=== PATIENT | male | born 1995 | race African-American/Black ===

== ENCOUNTER 2016-04-12 02:03 | Emergency (ER) | payer SELFPAY ==
[~2016-04-12] VITALS: Ht 167.6 cm; Wt 80.0 kg
[~2016-04-12 02:03] MED LIST: ALBU8I INH; AMOX875T PO; PRED20 PO
[2016-04-12 02:05] VITALS: BP 136/73; PULSE 92; RESP 20; TEMP 98; O2SAT 96
[2016-04-12] MEDS ORDERED: ONDANSETRON HCL 4 MG/2 ML VIAL IV PUSH ONE (03:00)
[2016-04-12] MEDS ORDERED: MORPHINE SULFATE 4 MG/ML INJ IV PUSH ONE ×2 (03:00→04:45)
--- NOTE | 2016-04-12 03:04 | PD ---
HPI Chief Complaint: Pain: Acute or Chronic Time Seen by Provider: 02:53 Travel History International Travel<30 days: No Contact w/Intl Traveler<30days: No Traveled to known affect area: No History of Present Illness HPI 20-year-old male complains of rectal pain. Patient states that he had anal sex 2 days ago. Patient states he has increasing pain patient states the pain is sharp severe pain localized to her rectal area. Patient denies any pain radiation. On a scale of 1-10 the pain is a 10. PFSH Past Medical History Medical History: Denies Significant Hx Autoimmune Disease: No Blood Disorders: No Cardiovascular Problems: No Genitourinary: No Musculoskeletal: No Neurologic: No Respiratory: No Past Surgical History Surgical History: No Previous Surgery Abdominal Surgery: No Cardiac Surgery: No Ear Surgery: No Endocrine Surgery: No Eye Surgery: No Genitourinary Surgery: No Gynecologic Surgery: No Neurologic Surgery: No Oral Surgery: No Thoracic Surgery: No Social History Alcohol Use: Yes (OCC) Tobacco Use: Yes (1PP3D) Substance Use: No Allergies-Medications (Allergen,Severity, Reaction): Coded Allergies: No Known Allergies (Verified , 04/12/16) Reported Meds & Prescriptions Reported Meds & Active Scripts Active No Active Prescriptions or Reported Medications Review of Systems General / Constitutional: No: Fever Eyes: No: Visual changes HENT: No: Headaches Cardiovascular: No: Chest Pain or Discomfort Respiratory: No: Shortness of Breath Gastrointestinal: No: Abdominal Pain Genitourinary: No: Dysuria Musculoskeletal: No: Pain Skin: No Rash Neurologic: No: Weakness Psychiatric: No: Depression Endocrine: No: Polydipsia Hematologic/Lymphatic: No: Easy Bruising Physical Exam Narrative GENERAL: Well-nourished, well-developed patient. SKIN: Warm and dry. HEAD: Normocephalic. EYES: No scleral icterus. No injection or drainage. NECK: Supple, trachea midline. No JVD or lymphadenopathy. CARDIOVASCULAR: Regular rate and rhythm without murmurs, gallops, or rubs. RESPIRATORY: Breath sounds equal bilaterally. No accessory muscle use. GASTROINTESTINAL: Abdomen soft, non-tender, nondistended. MUSCULOSKELETAL: No cyanosis, or edema. BACK: Nontender without obvious deformity. No CVA tenderness. Examination the rectum shows diffuse moderate to severe tenderness perirectal area. No evidence of laceration bleeding or mass noted. Data Data Last Documented VS Vital Signs Date Time Temp Pulse Resp B/P Pulse Ox O2 Delivery O2 Flow Rate FiO2 04/12/16 02:19 92 20 04/12/16 02:05 98.0 136/73 96 Room Air Orders Complete Blood Count With Diff (04/12/16 02:58) Comprehensive Metabolic Panel (04/12/16 02:58) Prothrombin Time / Inr (Pt) (04/12/16 02:58) Act Partial Throm Time (Ptt) (04/12/16 02:58) Iv Access Insert/Monitor (04/12/16 02:58) Ecg Monitoring (04/12/16 02:58) Oximetry (04/12/16 02:58) Ct Pelvis W Iv Contrast(Rout) (04/12/16 ) Morphine Inj (Morphine Inj) (04/12/16 03:00) Ondansetron Inj (Zofran Inj) (04/12/16 03:00) Iohexol 350 Inj (Omnipaque 350 Inj) (04/12/16 04:13) Morphine Inj (Morphine Inj) (04/12/16 04:45) Labs Laboratory Tests Test 04/12/16 03:08 White Blood Count 17.3 TH/MM3 Red Blood Count 6.21 MIL/MM3 Hemoglobin 16.5 GM/DL Hematocrit 47.2 % Mean Corpuscular Volume 76.0 FL Mean Corpuscular Hemoglobin 26.6 PG Mean Corpuscular Hemoglobin 35.0 % Concent Red Cell Distribution Width 13.5 % Platelet Count 300 TH/MM3 Mean Platelet Volume 7.2 FL Neutrophils (%) (Auto) 57.8 % Lymphocytes (%) (Auto) 28.5 % Monocytes (%) (Auto) 12.8 % Eosinophils (%) (Auto) 0.3 % Basophils (%) (Auto) 0.6 % Neutrophils # (Auto) 10.0 TH/MM3 Lymphocytes # (Auto) 4.9 TH/MM3 Monocytes # (Auto) 2.2 TH/MM3 Eosinophils # (Auto) 0.0 TH/MM3 Basophils # (Auto) 0.1 TH/MM3 CBC Comment AUTO DIFF Prothrombin Time 11.6 SEC Prothromb Time International 1.0 RATIO Ratio Activated Partial 27.8 SEC Thromboplast Time Sodium Level 138 MEQ/L Potassium Level 4.4 MEQ/L Chloride Level 104 MEQ/L Carbon Dioxide Level 22.8 MEQ/L Anion Gap 11 MEQ/L Blood Urea Nitrogen 10 MG/DL Creatinine 1.00 MG/DL Estimat Glomerular Filtration 114 ML/MIN Rate Random Glucose 79 MG/DL Calcium Level 9.9 MG/DL Total Bilirubin 0.7 MG/DL Aspartate Amino Transf 35 U/L (AST/SGOT) Alanine Aminotransferase 47 U/L (ALT/SGPT) Alkaline Phosphatase 101 U/L Total Protein 9.2 GM/DL Albumin 3.9 GM/DL MDM Medical Decision Making Medical Screen Exam Complete: Yes Emergency Medical Condition: Yes Interpretation(s) 4:37 AM. CBC WBC 17.3. 57 neutrophil, 28 lymphs, 12 monos. CMP within normal limit. 5:[address] of the pelvis show perianal abscess. Differential Diagnosis Differential diagnosis including rectal irritation, perirectal abscess. Narrative Course 20-year-old male with perirectal pain after anal sex 2 days ago. Morphine 4 mg IV. Zofran 4 mg IV. Repeat the morphine 4 mg IV. Normal saline solution 1 25 cc an hour. Zosyn 3.375 g IV given. Scripts No Active Prescriptions or Reported Meds Leo Potts MD Apr 12, 2016 03:04
[2016-04-12 03:47] LABS: BASOPHIL # 0.1 TH/MM3 (0-0.2); BASOPHIL % 0.6 % (0.0-2.0); EOSINOPHIL % 0.3 % (0.0-4.0); HEMATOCRIT 47.2 % (39.0-51.0); LYMPH % 28.5 % (9.0-44.0); LYMPHOCYTE # 4.9 TH/MM3 (1.0-4.8); MEAN CORPUSCULAR HEMOGLOBIN 26.6 PG (27.0-34.0); MONO % 12.8 % (0.0-8.0); NEUT % 57.8 % (16.0-70.0); PLATELET COUNT 300 TH/MM3 (150-450); RED BLOOD COUNT 6.21 MIL/MM3 (4.50-5.90); RED CELL DISTRIBUTION WIDTH 13.5 % (11.6-17.2); WHITE BLOOD COUNT 17.3 TH/MM3 (4.0-11.0)
[2016-04-12 03:55] LABS: HEMO FLAGS AUTO DIFF
[2016-04-12 03:57] LABS: ALT (GPT) 47 U/L (12-78); ANION GAP 11 MEQ/L (5-15); AST (GOT) 35 U/L (15-37); BICARBONATE 22.8 MEQ/L (21.0-32.0); BLOOD UREA NITROGEN 10 MG/DL (7-18); CHLORIDE 104 MEQ/L (98-107); GLOMERULAR FILTRATION RATE 114 ML/MIN (>89); POTASSIUM 4.4 MEQ/L (3.5-5.1); SODIUM (NA) 138 MEQ/L (136-145)
[2016-04-12 03:59] LABS: ALKALINE PHOSPHATASE 101 U/L (45-117); TOTAL BILIRUBIN ADULT 0.7 MG/DL (0.2-1.0)
[2016-04-12] MEDS ORDERED: IOHEXOL 350 MG/ML 10 ML VIAL (for RAD DIAG) IV ONE (04:13)
[2016-04-12 04:18] LABS: APTT (PATIENT) 27.8 SEC (24.3-30.1); PROTHROMBIN TIME - PATIENT 11.6 SEC (9.8-11.6)
--- NOTE | 2016-04-12 04:52 | RADRPT ---
EXAM DATE/TIME: 04/12/2016 04:10 [facility] COMPARISON: No previous studies available for comparison. INDICATIONS : Rectal pain x3 days; rule out abscess. IV CONTRAST: 95 cc Omnipaque 350 (iohexol) IV ORAL CONTRAST: No oral contrast ingested. RADIATION DOSE: 14.02 CTDIvol (mGy) MEDICAL HISTORY : None SURGICAL HISTORY : None. ENCOUNTER: Initial ACUITY: 3 days PAIN SCALE: 4/10 LOCATION: Left buttock TECHNIQUE: Volumetric scanning of the pelvis was performed. Using automated exposure control and adjustment of t he mA and/or kV according to patient size, radiation dose was kept as low as reasonably achievable to obtain optimal diagnostic quality images. FINDINGS: BOWEL/MESENTERY: Within the subcutaneous fat within the gluteal crease in perianal region, is a rim-enhancing fluid co llection with adjacent subcutaneous fat stranding. This measures approximately 5-0.5 cm in AP and tra nsverse dimension. This is noted on the right and is characteristic of a perianal abscess. BLADDER: There is no wall thickening or mass. RETROPERITONEUM: There is no aneurysm or lymphadenopathy. REPRODUCTIVE: Within normal limits. INGUINAL: There is no lymphadenopathy or hernia. MUSCULOSKELETAL: Within normal limits for patient age. CONCLUSION: 1. Perianal abscess is seen as described above. Delgado Benton MD on April 12, 2016 at 4:48 Board Certified Radiologist. This report was verified electronically.
[2016-04-12] MEDS ORDERED: PIPERACIL-TAZO 3.375 GM PREMIX 50 ML IV ONE (05:15)
[2016-04-12 05:27] LABS: SCAN/DIFF AUTO DIFF CONFIRMED
[2016-04-12 05:42] VITALS: BP 148/77; PULSE 73; RESP 16; RESP 18; O2SAT 98
[2016-04-12] MEDS ORDERED: LIDOCAINE 1%/EPINEPHrine 1:100,000 SOLN 20 ML VIAL INFIL ONE (05:45)
[2016-04-12] MEDS ORDERED: MIDAZOLAM HCL 5 MG/ML VIAL (1 ML) IVP ONE (05:45)
[2016-04-12 06:57] VITALS: BP 162/78; PULSE 68; RESP 19
[2016-04-12 06:59] VITALS: TEMP 99.2; O2SAT 96
[2016-04-12] MEDS ORDERED: PROPOFOL 500 MG/50 ML INJ 50 ML ONE (07:35)
[2016-04-12] MEDS ORDERED: HYDR-3516 PO (08:07)
[2016-04-12] MEDS ORDERED: PROPOFOL 200 MG/20 ML AMP IV ONE (08:15)
--- NOTE | 2016-04-12 08:58 | PD ---
Physical Exam Narrative Patient was seen by Dr. Potts. Please see his documentation for complete details. Briefly, patient has a perirectal abscess requiring drainage. Sign out was to allow Dr. Schneider to drain the abscess and discharge home. Data Data Last Documented VS Vital Signs Date Time Temp Pulse Resp B/P Pulse Ox O2 Delivery O2 Flow Rate FiO2 04/12/16 06:59 99.2 96 Room Air 04/12/16 06:57 68 19 162/78 Orders Complete Blood Count With Diff (04/12/16 02:58) Comprehensive Metabolic Panel (04/12/16 02:58) Prothrombin Time / Inr (Pt) (04/12/16 02:58) Act Partial Throm Time (Ptt) (04/12/16 02:58) Iv Access Insert/Monitor (04/12/16 02:58) Ecg Monitoring (04/12/16 02:58) Oximetry (04/12/16 02:58) Ct Pelvis W Iv Contrast(Rout) (04/12/16 ) Morphine Inj (Morphine Inj) (04/12/16 03:00) Ondansetron Inj (Zofran Inj) (04/12/16 03:00) Iohexol 350 Inj (Omnipaque 350 Inj) (04/12/16 04:13) Morphine Inj (Morphine Inj) (04/12/16 04:45) Piperacil-Tazo 3.375 Gm Premix (Zosyn 3. (04/12/16 05:15) Fentanyl Inj (Fentanyl Inj) (04/12/16 05:45) Midazolam Inj (Versed Inj) (04/12/16 05:45) Lidocai-Epi 1%-1:100,000 Inj (Xylocaine- (04/12/16 05:45) Propofol 500 Mg/50 Ml Inj (Diprivan 500 (04/12/16 07:35) Propofol 200 Mg/20 Ml Inj (Diprivan 200 (04/12/16 08:15) Abscess Culture And Gram Stain (04/12/16 08:17) Labs Laboratory Tests Test 04/12/16 03:08 White Blood Count 17.3 TH/MM3 Red Blood Count 6.21 MIL/MM3 Hemoglobin 16.5 GM/DL Hematocrit 47.2 % Mean Corpuscular Volume 76.0 FL Mean Corpuscular Hemoglobin 26.6 PG Mean Corpuscular Hemoglobin 35.0 % Concent Red Cell Distribution Width 13.5 % Platelet Count 300 TH/MM3 Mean Platelet Volume 7.2 FL Neutrophils (%) (Auto) 57.8 % Lymphocytes (%) (Auto) 28.5 % Monocytes (%) (Auto) 12.8 % Eosinophils (%) (Auto) 0.3 % Basophils (%) (Auto) 0.6 % Neutrophils # (Auto) 10.0 TH/MM3 Lymphocytes # (Auto) 4.9 TH/MM3 Monocytes # (Auto) 2.2 TH/MM3 Eosinophils # (Auto) 0.0 TH/MM3 Basophils # (Auto) 0.1 TH/MM3 CBC Comment AUTO DIFF Differential Comment AUTO DIFF CONFIRMED Prothrombin Time 11.6 SEC Prothromb Time International 1.0 RATIO Ratio Activated Partial 27.8 SEC Thromboplast Time Sodium Level 138 MEQ/L Potassium Level 4.4 MEQ/L Chloride Level 104 MEQ/L Carbon Dioxide Level 22.8 MEQ/L Anion Gap 11 MEQ/L Blood Urea Nitrogen 10 MG/DL Creatinine 1.00 MG/DL Estimat Glomerular Filtration 114 ML/MIN Rate Random Glucose 79 MG/DL Calcium Level 9.9 MG/DL Total Bilirubin 0.7 MG/DL Aspartate Amino Transf 35 U/L (AST/SGOT) Alanine Aminotransferase 47 U/L (ALT/SGPT) Alkaline Phosphatase 101 U/L Total Protein 9.2 GM/DL Albumin 3.9 GM/DL MDM Supervised Visit with VITOR: No Narrative Course Dr. Schneider came to the ED and drained the abscess under conscious sedation. Patient had no complications. Was observed in the ED until fully awake. Discharged home to follow up with Dr. Schneider. Diagnosis Primary Impression: Perirectal abscess Referrals: Marbella Shcneider MD call for appointment Patient Instructions: General Instructions, Rectal Abscess (ED) Additional Instruction: Follow up with Dr. Schneider in her office. [address] [place] [id number] [phone]. Take the pain medicine as needed, do not combine with Tylenol as it already has Tylenol in it. Refrain from anal intercourse until cleared by Dr. Schneider and completely healed. Return to the ED as needed for any worsening symptoms. Scripts Hydrocodone-Acetaminophen 5-325 mg Tab1-2 Tab PO Q6H PRN (PAIN) #30 TAB Ref 0 Prov:Marbella Schneider MD 04/12/16 Disposition: 01 DISCHARGE HOME Condition: Stable Carie Choudhury MD Apr 12, 2016 08:58
--- NOTE | 2016-04-12 10:47 | MP ---
cc: XIOMY SCHNEIDER M.D. DATE OF SURGERY: 04/12/2016 PREPROCEDURE DIAGNOSIS: Left-sided perianal abscess. POSTPROCEDURE DIAGNOSIS: Left-sided perianal abscess. OPERATION: I&D of perianal abscess. MEDICATIONS: Versed 5 milligrams. Propofol 100 milligrams SURGEON Xiomy Schneider MD. PROCEDURE COURSE The procedure was performed in the emergency department. The patient was placed in the left lateral decubitus position and appropriate cardiac and respiratory monitoring was applied, and baseline vitals were then taken. The patient was gently and gradually given the above mentioned medications until he was comfortable enough to perform the procedure. The area in question was then cleansed with Betadine and the skin and subcutaneous tissue was infiltrated over the area of the abscess, was then infiltrated with 1% lidocaine with 1:100,000 epinephrine. The abscess cavity was entered sharply and a moderate amount of purulent drainage was then expressed. The abscess cavity was then gently probed with a Q-TIP to be sure no additional pockets of purulence were noted. Digital rectal examination was performed and there was no abscess extending up into the rectal area. The abscess cavity was fully drained and an ellipse of skin was then removed at the drainage site to prevent premature closure. A corner of the gauze was tucked inside the incision and a dressing was applied. Throughout the procedure, the patient's respiratory and cardiac status remained unchanged and he remained on monitoring in the emergency department until he returned to his baseline/ MD LEANA Gomez/CHRISTINA /8:07 AM /10:39 AM [facility]Minnie
[2016-04-12 11:14] VITALS: BP 148/85
--- NOTE | 2016-04-12 11:55 | MB ---
cc: XIOMY ANTOINE M.D. DATE OF CONSULTATION: 04/12/2016 CHIEF COMPLAINT Perianal abscess HISTORY OF PRESENT ILLNESS The patient is a 20-year-old male who complains of rectal pain. He describes a [id number]-im-ujghj day history of gradually increasing pain in the anal area to the point where he is having trouble walking. He has had no drainage, he has had no previous episodes of anal abscess. He denies any fever or chills. He denies any diabetes or other contributing factors. PAST MEDICAL HISTORY: None. PAST SURGICAL HISTORY: None. ALLERGIES: None MEDICATIONS None SOCIAL HISTORY The patient smokes one pack per day, alcohol use is very rare but occasional. He does occasionally smoke marijuana. REVIEW OF SYSTEMS: Negative for fevers, chills, headache, chest pain, shortness of breath, abdominal pain, dysuria, hematuria, constipation or diarrhea, problems with mood or mentation. PHYSICAL EXAMINATION: Reveals a well-developed -[place] male who appears uncomfortable. NEURO: Grossly intact. SKIN: Warm and dry. CARDIOVASCULAR: Regular rate. CHEST: Breathing symmetric bilaterally and nonlabored. ABDOMEN: Soft, non-tender, non-distended. EXTREMITIES: No edema. : External anal exam reveals a perianal abscess in the left anterior position. This is exquisitely tender. Digital rectal examination was deferred until drainage. At that point there was no sign of abscess within the anal canal. LABORATORY DATA: Reveals a white count of 17.3, hemoglobin of 16.5, platelet count 300, all other labs are essentially normal. X-RAYS: CT scan was read as a perianal abscess on the right. IMPRESSION: Perianal abscess PLAN: I will perform I&D in the emergency room under conscious sedation. MD LEANA Gomez/CHRISTINA /8:04 AM /11:02 AM [facility]
== END 2016-04-12 11:19 | disposition home or self-care (01) ==
LOC: NEPE 02:03
DX: K61.2 Anorectal abscess (principal); B96.20 Unspecified Escherichia coli [E. coli] as the cause of diseases classified elsewhere
CPT/HCPCS: 46050; 72193; 80053; 85025; 85610; 85730; 87070; 87077; 87186; 96365; 96366; 96375; 96376; 99152; 99284; J2250; J2270; J2405; J2543; Q9967; 87205